=== PATIENT | male | born 1930 | race Caucasian/White ===

== ENCOUNTER 2018-06-04 08:44 | Inpatient (IN) | payer OTHER, BC ==
--- NOTE | 2018-06-04 09:01 | PDOC ---
History of Present Illness - General Chief Complaint: Injury Stated Complaint: FALL Time Seen by Provider: 06/04/18 09:00 - History of Present Illness Initial Comments: 87yo M with PMH of HTN, HLD, CAD, ?Parkinsons Disease presenting with syncopal episode and fall. The episode occurred as the patient was walking into the bathroom. Patient describes feeling weak and lightheaded prior to this episode. He lost consciousness, hit his head against an object during this unwitnessed fall. It is unknown how long he was down. No nausea or vomiting. Patient reports that he has had syncopal episodes, about ten this year, most recently in the past couple days, resulting in a right hand abrasion. Unknown what is the cause of his syncopal episodes. He has felt weak for the past several weeks. 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 Patient endorses sixty pound weight loss over the past couple years. He reports he has only eaten one meal per day because that is what comes from [employer]. Patient lives with his 91 year old sister with dementia at home. He receives some help from a neighbor. No fevers, chills, chest pain, or shortness of breath. Past History - Past Medical History Allergies/Adverse Reactions: Allergies Allergy/AdvReac Type Severity Reaction Status Date / Time No Known Allergies Allergy Verified 06/04/18 08:57 Home Medications: Ambulatory Orders Aspirin [ASA] 81 mg PO DAILY 11/23/11 Finasteride 5 mg PO DAILY 11/23/11 Metoprolol Succinate [Toprol XL] 12.5 mg PO BID 11/23/11 Cardiac Disorders: Yes (BLOCKED ARTERY) COPD: No HTN: Yes Hypercholesterolemia: Yes - Surgical History Abdominal Surgery: Yes (HERNIA REPAIR) - Suicide/Smoking/Psychosocial Hx Smoking Status: No Smoking History: Never smoked Number of Cigarettes Smoked Daily: 0 Review of Systems - Review of Systems Comments:: Constitutional: no fever, no chills HEENT: no throat pain, no dysphagia Cardiovascular: no chest pain, no palpitations Respiratory: no cough, no shortness of breath Gastrointestinal: no abdominal pain, no nausea, no vomiting Genitourinary: no dysuria, no frequency Musculoskeletal: no myalgia, no arthralgia Skin: no rash, no itching Neurologic: +difficulty ambulating, +weakness *Physical Exam - Vital Signs Last Vital Signs Temp Pulse Resp BP Pulse Ox 98.4 F 78 18 121/61 99 06/04/18 08:55 06/04/18 08:55 06/04/18 08:55 06/04/18 08:55 06/04/18 08:55 - Physical Exam Comments: General: Awake, alert, and fully oriented, in no acute distress Head: No signs of trauma Eyes: EOMI, sclera anicteric ENT: Dry mucus membranes Neck: Normal ROM, supple Lungs: Lungs clear, Normal breath sounds Cardio: Regular rhythm, S1 and S2 present Abdomen: Soft, nontender. No guarding, no rebound, no masses Extremities: Normal range of motion, Distal pulses present SKIN: Dorsum of R. hand with superficial laceration ~4cm x 4cm surrounded by scabbing and dried blood, hemostatic Neurologic: Cranial nerves II through XII intact. Resting tremor and rigidity present. Normal speech, sensation, [id number]-mv-[id number] coordination. 1+ strength in all four extremities Moderate Sedation - Procedure Monitoring Vital Signs: Procedure Monitoring Vital Signs Temperature 98.4 F 06/04/18 08:55 Pulse Rate 78 06/04/18 08:55 Respiratory Rate 18 06/04/18 08:55 Blood Pressure 121/61 06/04/18 08:55 O2 Sat by Pulse Oximetry (%) 99 06/04/18 08:55 ED Treatment Course - LABORATORY CBC & Chemistry Diagram: 06/06/18 06:53 06/05/18 06:10 Medical Decision Making - Medical Decision Making 87yo M with PMH of HTN, HLD, CAD, ?Parkinsons Disease presenting with syncopal episode and fall. -DDX includes but not limited to mechanical fall, vasovagal syncope, cardiogenic syncope, metabolic syncope, neurogenic syncope, postural syncope, intoxication, seizure -EKG, rate 67, QTc 414, abnormal EKG likely due to patient's tremors -Repeat EKG, rate 70, QTc 425, Sinus rhythm with PACs -Labs: no leukocytosis or anemia, UA negative for infection -CT/CXR: negative for acute pathology -Positive orthostatics: laying 143/70, standing 103/68 06/04/18 13:15 Dr. Gonzalez discussed case with Dr. Lewis who feels that his patient's falls are likely due to autonomic dysfunction from his Parkinson's Disease. He feels that the patient is okay to be discharged with outpatient follow-up with cardiology so that an US/ECHO can be performed. I explained this to the patient' s nephew (Wes, ) who is able to set up this appointment and is able to come and get the patient in about an hour. Plan to discharge 06/04/18 14:50 Upon ambulating to the bathroom with the help of medical reception specialist, patient almost fell and was caught by the medical reception specialist. Decision made to admit patient as it is determined that he is not safe to be discharged. Discussed this with his nephew who is able to care for his aunt with Alzheimers (who is normally taken care of by the patient) while the patient is admitted. Dr. Lewis accepted patient for admission. *DC/Admit/Observation/Transfer Diagnosis at time of Disposition: Syncopal episodes Qualifiers: Encounter type: initial encounter - Discharge Dispostion Disposition: HOME Condition at time of disposition: Stable - Referrals - Patient Instructions - Post Discharge Activity
[2018-06-04] MEDS ORDERED: TETANUS AND DIPHTHERIA TOXOID 0.5 ML DISP.SYRIN IM ONE (10:00)
[2018-06-04] MEDS ORDERED: DIPHTH,PERTUSS(ACELL),TET 0.5 ML DISP.SYRIN IM ONE (10:32)
[2018-06-04 10:45] LABS: BASO % 0.3 % (0-2.0); EOS % 0.9 % (0-4.5); HEMOGLOBIN 13.1 GM/dL (11.7-16.9); LYMPH % 9.5 % (8-40); MCH 32.6 pg (25.7-33.7); MCHC 35.3 g/dl (32.0-35.9); MEAN CELL VOLUME 92.3 fl (80-96); MEAN PLT VOLUME 8.8 fl (7.5-11.1); MONO % 5.4 % (3.8-10.2); NEUT % 83.9 % (42.8-82.8); PLATELET COUNT 219 K/MM3 (134-434); RBC 4.01 M/mm3 (4.00-5.60); RDW 13.7 % (11.9-15.9); WHITE BLOOD COUNT 9.1 K/mm3 (4.0-10.0)
[2018-06-04 11:21] LABS: URINE APPEARANCE CLEAR; URINE BILIRUBIN NEGATIVE (<2.0 mg/dL); URINE COLOR YELLOW; URINE GLUCOSE (UA) NEGATIVE (NEGATIVE); URINE KETONE NEGATIVE (NEGATIVE); URINE LEUK ESTERASE NEGATIVE (NEGATIVE); URINE NITRITE NEGATIVE (NEGATIVE); URINE PROTEIN NEGATIVE (NEGATIVE)
[2018-06-04 11:26] LABS: URINE BACTERIA FEW /hpf (NONE SEEN); URINE HYALINE CAST 3 /lpf; URINE MUCUS RARE
[2018-06-04 11:39] LABS: ALBUMIN 3.3 g/dl (3.4-5.0); ALK PHOS 90 U/L (45-117); ANION GAP 8 MMOL/L (8-16); BILIRUBIN,TOTAL 0.9 mg/dL (0.2-1); BLOOD UREA NITROGEN 27 mg/dL (7-18); CALCIUM 8.7 mg/dL (8.5-10.1); CHLORIDE 106 mmol/L (98-107); CO2 26 mmol/L (21-32); CREATININE 1.2 mg/dL (0.55-1.3); GLUCOSE,RANDOM 104 mg/dL (74-106); POTASSIUM 4.6 mmol/L (3.5-5.1); SGOT/AST 21 U/L (15-37); SGPT/ALT 13 U/L (13-61); SODIUM 140 mmol/L (136-145); TOT PROT 6.8 g/dl (6.4-8.2)
--- NOTE | 2018-06-04 13:26 | PDOC ---
Attending Attestation - Medical Decision Making Documentation prepared by Maxine Feliciano, acting as medical practice manager for Bruce Gonzalez MD 06/04/18 13:15 Dr. Lewis paged at this time for admission. <Maxine Feliciano - Last Filed: 06/04/18 13:36> - Resident Resident Name: Linda Preston - ED Attending Attestation I have performed the following: I have examined & evaluated the patient, The case was reviewed & discussed with the resident, I agree w/resident's findings & plan - HPI HPI: 06/04/18 13:21 87-year-old male with recurring syncopal episodes presents with syncope while walking, has prodrome of lightheadedness followed by loss of consciousness. No injury on this occasion, has struck his head in the past. Recently injured his hand a few days ago, denies any other complaints. Last echo was reportedly several years ago, presents for evaluation. - Physicial Exam PE: 06/04/18 13:22 Vital signs normal Generally well-appearing, trauma exam localized to right hand where he has scattered healing superficial wounds without evidence of infection at this time. No focal bony deformity or tenderness, full range of motion and neurovascularly intact Heart is overall regular with 3/6 systolic ejection murmur, occasional premature beats Lungs are clear Abdomen benign Full range of motion of all extremities, no edema - Medical Decision Making 06/04/18 13:23 87-year-old male with recurring syncopal episodes, another episode today. Concern for cardiac etiology given the murmur and potential arrhythmia. Labs, EKG Chest x-ray CT head Admission for telemetry Labs are within normal limits including troponin Initial EKG with significant artifact secondary to underlying resting tremor, repeat EKG shows sinus rhythm with a single PVC noted but no acute ischemia Chest x-ray, CT head, CT C-spine without acute pathology Proceed with telemetry admission 06/04/18 13:[address] Lewis, who knows the patient very well. syncope historically 2/2 autonimic dysfunction from parkinson's, known non-compliant and f/u at [facility]. PVC on EKG old per priors from office, last Echo from 2013 shows calcified aortic valve but no stenosis. discussed risk/benefit of admitting including issue of dependent sister at home. recommends expedited outpt echo coordinated with nephew if possible and can f/u. if outpt echo not an option, will need to stay. 06/04/18 15:46 unable to ambulate on trialing. will admit. seen with Dr. Lewis, accepts for inpt med/surg, will likely need rehab placment. <Bruce Gonzalez - Last Filed: 06/04/18 15:46> Heart Score/ECG Review #1 ECG reviewed & interpreted by me at: 10:13 06/04/18 13:24 artifact, rate 67 #2 ECG reviewed & interpreted by me at: 13:00 General ECG Interpretation: Sinus Rhythm (PVC noted), Normal Rate (70), Normal Intervals (qtc 425), No acute ischemic changes <Bruce Gonzalez - Last Filed: 06/04/18 15:46>
--- NOTE | 2018-06-04 15:51 | HP ---
Admitting History and Physical - Admission Chief Complaint: 87 y.o M was admitted from his home after episode of syncope/ near syncope. 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 He lives at home with his sister Sahra who has advanced Dementia and Alzheimer's disease. In the ER unable to stand, walk and incontinent of Urine. Admitted for further management History of Present Illness: ASHD, previously FCAVD No hx of [place] Parkinson"s Dementia. 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 No: AFIB, CHF, Deep Vein Thrombosis, ND , Mitral Insufficiency Pulmonary: No: Cancer, COPD, O2 Dependent, Pulmonary Embolus Gastrointestinal: Yes: Diverticulosis Hepatobiliary: No: Cirrhosis, Cholelithiasis, Cholecystitis, Choledocholithiasis , Hepatitis A, Hepatitis B, Hepatitis C, Other Renal/: No: Renal Failure, Renal Inusuff, BPH, Cancer, Hematuria, Hemodialysis , Neurogenic Bladder, Renal Calculi, UTI, Other Heme/Onc: No: Bleeding Disorder, Cancer, Sickle Cell Trait Infectious Disease: No: AIDS, C-Diff, Herpes Zoster, HIV, MRSA, STD's, Tuberculosis, VREF, Other Psych: Yes: Anxiety, Depression, Panic. No: Addictions Musculoskeletal: Yes: Chronic low back pain, Osteoarthritis. No: Hemiparesis, Hemiplegia, Paraplegia Rheumatology: No: Fibromyalgia, Lupus, Rheumatoid Arthritis, Sarcoidosis, Vasculitis - Smoking History Smoking history: Never smoked Aproximately how many cigarettes per day: 0 - Alcohol/Substance Use Hx Alcohol Use: No - Social History History of Recent Travel: No Home Medications - Allergies Allergies/Adverse Reactions: Allergies Allergy/AdvReac Type Severity Reaction Status Date / Time No Known Allergies Allergy Verified 06/04/18 08:57 - Home Medications Home Medications: Ambulatory Orders Aspirin [ASA] 81 mg PO DAILY 11/23/11 Finasteride 5 mg PO DAILY 11/23/11 Metoprolol Succinate [Toprol XL] 12.5 mg PO BID 11/23/11 Family Disease History - Family Disease History Family History: Unremarkable Review of Systems - Review of Systems Constitutional: reports: Lethargy, Loss of Appetite, Weakness Eyes: reports: Blurred Vision HENT: denies: Difficult Swallowing Neck: denies: Decreased ROM, Lumps, Pain on Movement Cardiovascular: denies: Chest Pain, Edema, Palpitations, Shortness of Breath Respiratory: denies: Cough, Exercise Intolerance, Hemoptysis Gastrointestinal: reports: Constipation. denies: Abdominal Pain, Bloating Genitourinary: reports: Incontinence. denies: Burning, Discharge Musculoskeletal: reports: Muscle Weakness. denies: Extremity Pain, Joint Pain Hematology/Lymphatic: denies: Excessive Bleeding, Swollen Glands Psychiatric: reports: Altered Sleep Pattern, Anxiety, Depression, Panic. denies : Hallucinations, Suicidal Physical Examination Vital Signs: Vital Signs Temperature 98.4 F 06/04/18 15:46 Pulse Rate 67 06/04/18 15:46 Respiratory Rate 16 06/04/18 15:46 Blood Pressure 120/65 06/04/18 15:46 O2 Sat by Pulse Oximetry (%) 99 06/04/18 15:46 Constitutional: Yes: Anxious, Mild Distress, Pallor Eyes: Yes: Conjunctiva Clear, EOM Intact HENT: Yes: Atraumatic, Normocephalic Neck: Yes: Supple, Trachea Midline. No: Decreased ROM, Lymphadenopathy Cardiovascular: Yes: Pulse Irregular (VPC's), Murmur (4/5 LYSSA on aorta), S1, S2 Respiratory: Yes: Regular, CTA Bilaterally Gastrointestinal: Yes: Normal Bowel Sounds, Soft, Abdomen, Obese ...Rectal Exam: Yes: Deferred Renal/: No: Anuria, Bladder Distention, CVA Tenderness - Left Breast(s): Yes: WNL Extremities: No: Calf Tenderness, Cold, Cyanosis Edema: No Peripheral Pulses WNL: No Integumentary: Yes: WNL Neurological: Yes: Alert, Oriented, Confusion, Tremors, Unsteady Gait, Weakness. No: Aphasia, Seizure Psychiatric: Yes: Alert, Oriented. No: Agitated, Suicidal Ideation Labs: CBC, BMP 06/04/18 10:30 06/04/18 10:30 Laboratory Results - last 24 hr 06/04/18 06/04/18 06/04/18 10:30 10:30 11:01 WBC 9.1 RBC 4.01 Hgb 13.1 Hct 37.0 MCV 92.3 MCH 32.6 MCHC 35.3 RDW 13.7 Plt Count 219 MPV 8.8 Absolute Neuts (auto) 7.6 Neutrophils % 83.9 H Lymphocytes % 9.5 D Monocytes % 5.4 Eosinophils % 0.9 Basophils % 0.3 Nucleated RBC % 0 Sodium 140 Potassium 4.6 Chloride 106 Carbon Dioxide 26 Anion Gap 8 BUN 27 H Creatinine 1.2 Creat Clearance w eGFR 57.54 Random Glucose 104 Calcium 8.7 Total Bilirubin 0.9 AST 21 ALT 13 Alkaline Phosphatase 90 Troponin I < 0.02 Total Protein 6.8 Albumin 3.3 L TSH 1.28 Urine Color Yellow Urine Appearance Clear Urine pH 5.0 Ur Specific [place] 1.020 Urine Protein Negative Urine Glucose (UA) Negative Urine Ketones Negative Urine Blood 1+ H Urine Nitrite Negative Urine Bilirubin Negative Urine Urobilinogen 2.0 Ur Leukocyte Esterase Negative Urine WBC (Auto) 4 Urine RBC (Auto) 1 Urine Bacteria Few Hyaline Casts 3 Urine Mucus Rare Imaging - Results X-ray: Report Reviewed Cat Scan: Report Reviewed EKG: Report Reviewed, Image Reviewed Problem List - Problems (1) Syncopal episodes Assessment/Plan: Probably related to Parkinson, qmyp-jwwaq-vmyhprvdl dysfunction. Will observe VS, cardiology CT HEAD-volume loss, ventricular dilatations Code(s): R55 - SYNCOPE AND COLLAPSE Qualifiers: Encounter type: initial encounter (2) Parkinson disease, symptomatic Assessment/Plan: Re-start Sinemet 25/100 TID Neuro consult Code(s): G20 - PARKINSON'S DISEASE (3) Aortic stenosis Assessment/Plan: R/o severe contributing to syncopal episodes ECHO Cardiology Code(s): I35.0 - NONRHEUMATIC AORTIC (VALVE) STENOSIS Qualifiers: Cardiac valve disease etiology: nonrheumatic Qualified Code(s): I35.0 - Nonrheumatic aortic (valve) stenosis (4) Functional gait disorder with tremor Assessment/Plan: PT eval The patient might require SNF rehab Code(s): R26.9 - UNSPECIFIED ABNORMALITIES OF GAIT AND MOBILITY; R25.1 - TREMOR , UNSPECIFIED
--- NOTE | 2018-06-04 16:13 | EKG ---
Test Reason : Blood Pressure : / mmHG Vent. Rate : 070 BPM Atrial Rate : 070 BPM P-R Int : 176 ms QRS Dur : 086 ms QT Int : 394 ms P-R-T Axes : 062 033 028 degrees QTc Int : 425 ms POOR DATA QUALITY, INTERPRETATION MAY BE ADVERSELY AFFECTED SINUS RHYTHM WITH PREMATURE ATRIAL COMPLEXES OTHERWISE NORMAL ECG WHEN COMPARED WITH ECG OF 04-JUN-2018 10:13, SINUS RHYTHM HAS REPLACED ATRIAL FIBRILLATION Confirmed by ORALIA RICHARDSON, ARACELI ([id number]) on 06/04/2018 4:13:33 PM Referred By: Confirmed By:ARACELI BARTON MD
--- NOTE | 2018-06-04 16:15 | EKG ---
Test Reason : Blood Pressure : / mmHG Vent. Rate : 067 BPM Atrial Rate : 375 BPM P-R Int : 000 ms QRS Dur : 086 ms QT Int : 392 ms P-R-T Axes : 000 062 066 degrees QTc Int : 414 ms POOR DATA QUALITY, INTERPRETATION MAY BE ADVERSELY AFFECTED ATRIAL FIBRILLATION ABNORMAL ECG WHEN COMPARED WITH ECG OF 23-NOV-2011 12:30, ATRIAL FIBRILLATION HAS REPLACED SINUS RHYTHM Confirmed by ORALIA RICHARDSON, ARACELI ([id number]) on 06/04/2018 4:14:50 PM Referred By: Confirmed By:ARACELI BARTON MD
[2018-06-04] MEDS: metoPROLOL SUCCINATE 25 MG TAB.SR.24H (FP) PO SCH (22:07)
[2018-06-04] MEDS: CARBIDOPA/LEVODOPA 25/100 TABLET (FP) PO SCH (22:07)
--- NOTE | 2018-06-05 02:33 | HOSP ---
Physical Examination Vital Signs: Vital Signs Temperature 98.3 F 06/04/18 20:46 Pulse Rate 68 06/04/18 20:46 Respiratory Rate 20 06/05/18 00:07 Blood Pressure 131/69 06/04/18 20:46 O2 Sat by Pulse Oximetry (%) 98 06/05/18 00:07 Labs: CBC, BMP 06/04/18 10:30 06/04/18 10:30 Hospitalist Encounter Assessment: I was called by nursing staff for evaluation of abnormal EKG. 2 EKGs from earlier this admission reviewed and one c/w atrial fibrillation and second with possible atrial flutter?. Patient endorses that he "blacked out" earlier rather than mechanical fall. On exam, patient is awake, alert, in no distress. Heart sounds distant. Cardiology consult is placed. Transthoracic echo ordered. I discussed anticoagulation with him including risks and benefits. He chooses to decline anticoagulation at this time due to his frequent falls and high risk for bleed.
[2018-06-05] MEDS: CARBIDOPA/LEVODOPA 25/100 TABLET (FP) PO SCH ×3 (05:29→21:28)
[2018-06-05 07:25] LABS: BASO % 0.3 % (0-2.0); EOS % 1.4 % (0-4.5); HEMATOCRIT 37.5 % (35.4-49); HEMOGLOBIN 12.1 GM/dL (11.7-16.9); LYMPH % 18.3 % (8-40); MCH 30.2 pg (25.7-33.7); MCHC 32.4 g/dl (32.0-35.9); MEAN CELL VOLUME 93.2 fl (80-96); MEAN PLT VOLUME 8.8 fl (7.5-11.1); MONO % 5.5 % (3.8-10.2); NEUT % 74.5 % (42.8-82.8); PLATELET COUNT 221 K/MM3 (134-434); RBC 4.02 M/mm3 (4.00-5.60); WHITE BLOOD COUNT 7.7 K/mm3 (4.0-10.0)
--- NOTE | 2018-06-05 08:52 | PN ---
Progress Note, Physician Chief Complaint: Episodes of orthostatic hypotension noted. Ekg's -questionable episodes of A.fib. Today AM SR, APC's, single and pairs. History of Present Illness: ASHD, previously FCAVD No hx of [place] Parkinson"s Dementia. HTN Multiple falls BPH - Current Medication List Current Medications: Active Medications Aspirin (Asa -) 81 mg PO DAILY [facility] Carbidopa/Levodopa (Sinemet 25/100 -) 1 each PO TID [facility] Last Admin: 06/05/18 05:29 Dose: Not Given Finasteride (Proscar -) 5 mg PO DAILY [facility] Fludrocortisone Acetate (Florinef -) 0.1 mg PO DAILY [facility] Influenza Virus Vaccine Quadrival (Flulaval Quad [id number]) 60 mcg IM .ONCE ONE Stop: 06/05/18 10:01 Metoprolol Succinate (Toprol Xl -) 12.5 mg PO BID [facility] Last Admin: 06/04/18 22:07 Dose: 12.5 mg Pneumococcal 13-Valent Conj Vacc (Prevnar 13 Syringe -) 0.5 ml IM .ONCE ONE Stop: 06/05/18 10:01 - Objective Vital Signs: Vital Signs Temperature 98.4 F 06/05/18 06:00 Pulse Rate 70 06/05/18 06:00 Respiratory Rate 20 06/05/18 06:00 Blood Pressure 69/47 L 06/05/18 06:00 O2 Sat by Pulse Oximetry (%) 98 06/05/18 00:07 Constitutional: Yes: Anxious, Mild Distress Eyes: Yes: Conjunctiva Clear, EOM Intact HENT: Yes: Atraumatic, Normocephalic. No: Drooling Neck: Yes: Supple, Trachea Midline. No: Decreased ROM, Lymphadenopathy Cardiovascular: Yes: Pulse Irregular (APC), Murmur (on Aorta 3-4/6 crescendo- decrescendo), S1, S2. No: Bruit, JVD Respiratory: Yes: Regular, CTA Bilaterally Gastrointestinal: Yes: Normal Bowel Sounds, Soft. No: Abdomen, Obese, Ascites ...Rectal Exam: Yes: Deferred Genitourinary: No: Anuria, Bladder Distention, CVA Tenderness - Left, CVA Tenderness - Right Breast(s): Yes: WNL Musculoskeletal: No: Back Pain, Joint Stiffness Extremities: No: Amputation, Cold, Cyanosis Edema: No Peripheral Pulses WNL: Yes Integumentary: Yes: Bruising (ight hand) Wound/Incision: Yes: Clean/Dry (right hand) ...Motor Strength: WNL Psychiatric: Yes: Alert, Oriented. No: Agitated, Suicidal Ideation Labs: CBC, BMP 06/05/18 06:10 06/04/18 10:30 - ....Imaging EKG: Report Reviewed Problem List - Problems (1) Syncopal episodes Assessment/Plan: Orthostatic hypotension, autonomic disfunction. Will check cortisol ECHO Cardiology Start Fludrocortisone 0.1 QD Code(s): R55 - SYNCOPE AND COLLAPSE Qualifiers: Encounter type: initial encounter (2) Parkinson disease, symptomatic Assessment/Plan: Re-start Sinemet 25/100 TID Neuro consult Code(s): G20 - PARKINSON'S DISEASE (3) Aortic stenosis Assessment/Plan: R/o severe contributing to syncopal episodes ECHO Cardiology consult Code(s): I35.0 - NONRHEUMATIC AORTIC (VALVE) STENOSIS Qualifiers: Cardiac valve disease etiology: nonrheumatic Qualified Code(s): I35.0 - Nonrheumatic aortic (valve) stenosis (4) Functional gait disorder with tremor Assessment/Plan: PT eval The patient might require SNF rehab Muscle weakness Code(s): R26.9 - UNSPECIFIED ABNORMALITIES OF GAIT AND MOBILITY; R25.1 - TREMOR , UNSPECIFIED (5) Arrhythmia, atrial Assessment/Plan: r/o a.fib vs frequent APC and artifact from Parkinson's on the first EKG Telemetry Reluctant to proceed with A/C if necessary. He is a poor candidate for A/C due to frequent falls and poor compliance with meds. Code(s): I49.8 - OTHER SPECIFIED CARDIAC ARRHYTHMIAS (6) Malnutrition of mild degree Assessment/Plan: Start Ensure TID Code(s): E44.1 - MILD PROTEIN-CALORIE MALNUTRITION
--- NOTE | 2018-06-05 09:09 | EKG ---
Test Reason : Blood Pressure : / mmHG Vent. Rate : 073 BPM Atrial Rate : 038 BPM P-R Int : 000 ms QRS Dur : 086 ms QT Int : 394 ms P-R-T Axes : 000 043 042 degrees QTc Int : 434 ms POOR DATA QUALITY, INTERPRETATION MAY BE ADVERSELY AFFECTED NORMAL SINUS RHYTHM sinus arrhythmia ABNORMAL ECG Confirmed by RENATA WOODSON MD ([id number]) on 06/05/2018 9:09:00 AM Referred By: Confirmed By:RENATA WOODSON MD
--- NOTE | 2018-06-05 09:16 | EKG ---
Test Reason : Blood Pressure : / mmHG Vent. Rate : 075 BPM Atrial Rate : 075 BPM P-R Int : 182 ms QRS Dur : 090 ms QT Int : 380 ms P-R-T Axes : 047 062 061 degrees QTc Int : 424 ms SINUS RHYTHM WITH PREMATURE ATRIAL COMPLEXES OTHERWISE NORMAL ECG WHEN COMPARED WITH ECG OF 04-JUN-2018 23:31, SINUS RHYTHM HAS REPLACED ATRIAL FIBRILLATION Confirmed by KANDICE RICHARDSON, RENATA ([id number]) on 06/05/2018 9:16:07 AM Referred By: Confirmed By:RENATA WOODSON MD
[2018-06-05 09:44] LABS: ALBUMIN 3.1 g/dl (3.4-5.0); ALK PHOS 83 U/L (45-117); ANION GAP 6 MMOL/L (8-16); BLOOD UREA NITROGEN 23 mg/dL (7-18); CALCIUM 8.5 mg/dL (8.5-10.1); CHLORIDE 104 mmol/L (98-107); CHOLESTEROL 197 mg/dL (50-200); CO2 26 mmol/L (21-32); CREATININE 1.2 mg/dL (0.55-1.3); GLUCOSE,RANDOM 95 mg/dL (74-106); HDL CHOLESTEROL 37 mg/dL (40-60); MAGNESIUM 2.1 mg/dL (1.8-2.4); PHOSPHOROUS 3.2 mg/dL (2.5-4.9); POTASSIUM 4.1 mmol/L (3.5-5.1); SGOT/AST 12 U/L (15-37); SGPT/ALT 7 U/L (13-61); SODIUM 137 mmol/L (136-145); TOT PROT 6.4 g/dl (6.4-8.2); TRIGLYCERIDES 98 mg/dL (0-150)
[2018-06-05] MEDS ORDERED: PNEUMOC 13-VAL CONJ-DIP CRM/PF 0.5 ML DISP.SYRIN IM ONE (10:00)
[2018-06-05] MEDS ORDERED: ASPIRIN 81 MG CHEWABLE TABLETS PO SCH (10:00)
[2018-06-05] MEDS ORDERED: FLU VACCINE QUAD 60 MCG/0.5 ML (MDV 18-19) IM ONE (10:00)
[2018-06-05] MEDS ORDERED: FINASTERIDE 5 MG TABLET (FP) PO SCH (10:00)
--- NOTE | 2018-06-05 10:41 | CON.CARD ---
Consult Consult Specialty:: cardiology Reason for Consultation:: syncope - History of Present Illness Chief Complaint: Pt denies palpitations or chest pain. History of Present Illness: 87yo M with PMH of HTN, HLD, CAD, ?Parkinsons Disease presenting with syncopal episode and fall. The episode occurred as the patient was walking into the bathroom. Patient describes feeling weak and lightheaded prior to this episode. He lost consciousness, hit his head against an object during this unwitnessed fall. It is unknown how long he was down. No nausea or vomiting. Patient reports that he has had syncopal episodes, about ten this year, most recently in the past couple days, resulting in a right hand abrasion. Unknown what is the cause of his syncopal episodes. He has felt weak for the past several weeks. 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 Patient endorses sixty pound weight loss over the past couple years. He reports he has only eaten one meal per day because that is what comes from [employer] [facility]. Patient lives with his 91 year old sister with dementia at home. He receives some help from a neighbor. No fevers, chills, chest pain, or shortness of breath. 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 No: AFIB, CHF, Deep Vein Thrombosis, [place] , Mitral Insufficiency Pulmonary: No: Cancer, COPD, O2 Dependent, Pulmonary Embolus Gastrointestinal: Yes: Diverticulosis Hepatobiliary: No: Cirrhosis, Cholelithiasis, Cholecystitis, Choledocholithiasis , Hepatitis A, Hepatitis B, Hepatitis C, Other Renal/: No: Renal Failure, Renal Inusuff, BPH, Cancer, Hematuria, Hemodialysis , Neurogenic Bladder, Renal Calculi, UTI, Other Infectious Disease: No: AIDS, C-Diff, Herpes Zoster, HIV, MRSA, STD's, Tuberculosis, VREF, Other Psych: Yes: Anxiety, Depression, Panic. No: Addictions Musculoskeletal: Yes: Chronic low back pain, Osteoarthritis. No: Hemiparesis, Hemiplegia, Paraplegia Rheumatology: No: Fibromyalgia, Lupus, Rheumatoid Arthritis, Sarcoidosis, Vasculitis - Alcohol/Substance Use Hx Alcohol Use: No - Smoking History Smoking history: Never smoked Aproximately how many cigarettes per day: 0 - Social History History of Recent Travel: No Home Medications - Allergies Allergies/Adverse Reactions: Allergies Allergy/AdvReac Type Severity Reaction Status Date / Time No Known Allergies Allergy Verified 06/04/18 08:57 - Home Medications Home Medications: Ambulatory Orders Aspirin [ASA] 81 mg PO DAILY 11/23/11 Finasteride 5 mg PO DAILY 11/23/11 Metoprolol Succinate [Toprol XL] 12.5 mg PO BID 11/23/11 Family Disease History - Family Disease History Family History: Denies Review of Systems - Review of Systems Constitutional: reports: Unintentional Wgt. Loss, Weakness Eyes: reports: No Symptoms HENT: reports: No Symptoms Neck: reports: No Symptoms Cardiovascular: reports: No Symptoms Respiratory: reports: No Symptoms Gastrointestinal: denies: Rectal Bleeding Genitourinary: reports: No Symptoms Breasts: reports: No Symptoms Reported Musculoskeletal: reports: Muscle Weakness Integumentary: reports: No Symptoms Neurological: reports: Weakness Endocrine: reports: Unexplained Weight Loss Psychiatric: reports: Anxiety - Risk Factors Known Risk Factors: Yes: Age, Gender, Hypertension Vital Signs: Vital Signs Temperature 98.4 F 06/05/18 06:00 Pulse Rate 70 06/05/18 06:00 Respiratory Rate 20 06/05/18 06:00 Blood Pressure 69/47 L 06/05/18 06:00 O2 Sat by Pulse Oximetry (%) 98 06/05/18 00:07 Constitutional: Yes: Anxious Eyes: Yes: WNL HENT: Yes: WNL Neck: Yes: WNL Respiratory: Yes: Diminished - Other Data Labs, Other Data: CBC, BMP 06/05/18 06:10 06/05/18 06:10 Troponin, BNP 06/04/18 06/04/18 10:30 20:50 Troponin I < 0.02 0.02 Troponin, BNP 06/04/18 06/04/18 10:30 20:50 Troponin I < 0.02 0.02 Ejection Fraction %: LVEF > or = 40 % Imaging - Results Chest X-ray: Image Reviewed (no acute pathology) EKG: Image Reviewed Problem List - Problems (1) Parkinson disease, symptomatic Code(s): G20 - PARKINSON'S DISEASE (2) Syncopal episodes Assessment/Plan: Maintain hydration. Orthostatic vital signs. ECHO for LVEF, valve status (3/6 LYSSA, RSB--> left axilla); hx aortic stenosis. Telemetry monitoring. Neruology w/u in progress. Code(s): R55 - SYNCOPE AND COLLAPSE Qualifiers: Encounter type: initial encounter (3) Aortic stenosis Assessment/Plan: Harsh systolic murmur, RSB-->axilla by history; f/u ECHO for LVEF, valve status. Code(s): I35.0 - NONRHEUMATIC AORTIC (VALVE) STENOSIS Qualifiers: Cardiac valve disease etiology: nonrheumatic Qualified Code(s): I35.0 - Nonrheumatic aortic (valve) stenosis (4) EKG abnormalities Assessment/Plan: EKK 06/05/18: NSR with APCs. EKG 06/04/18, read as atrial fib/flutter, likely artifactual due to Parkinson's tremor; for telemetry monitoring. Code(s): R94.31 - ABNORMAL ELECTROCARDIOGRAM [ECG] [EKG]
[2018-06-05] MEDS: metoPROLOL SUCCINATE 25 MG TAB.SR.24H (FP) PO SCH ×2 (10:42→21:29)
[2018-06-05] MEDS ORDERED: PT OWN MED DRAWER 7, Y5N ONE ×2 (13:11→15:14)
[2018-06-05] MEDS: FLUDROCORTISONE ACETATE 0.1 MG TABLET (FP) PO SCH (16:34)
[2018-06-05 17:04] VITALS: BMI 24.9
--- NOTE | 2018-06-05 18:18 | CON.NEURO ---
Consult - History of Present Illness History of Present Illness: 87 y.o M was admitted from his home after episode of syncope/ near syncope. 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 He states he takes RX sometimes " when he can reach them " He lives at home with his sister Sahra who has advanced Dementia and Alzheimer's disease. In the ER unable to stand, walk and incontinent of Urine. Admitted for further management. Poor HX . SCANS : CT scan of the brain without intravenous contrast Since 11/23/2011, there remains moderate volume loss and ventricular dilatation. No mass lesion, gross acute infarct or intracranial hemorrhage are identified. There is no shift of the midline structures. Visualized paranasal sinuses and mastoid air cells are well aerated. The calvarium is intact. Calcification of the cavernous carotid arteries are present. IMPRESSION: No significant interval change or acute intracranial pathology is identified. Correlate clinically to determine further evaluation and follow-up. CT scan of the cervical spine without intravenous contrast Coronal and sagittal reconstruction images were obtained. There is straightening of the cervical spine. No gross fracture, subluxation or prevertebral soft tissue swelling is seen. No jumped facets are identified. Moderate to marked degenerative disc disease at C4-C5, C5-C6 and C6-C7 level with mild posterior spur formation mainly at C5-C6 level and left uncovertebral hypertrophy moderately narrowing the left foramen and likely impinging left C6 nerve root. Mild degenerative changes in both TM joints. Visualized portion of the airway appears unremarkable. No gross enlarged lymph nodes are identified. Small calcified plaques at the common carotid bifurcation, bilaterally. Hypodense nodule with peripheral calcifications in the left thyroid lobe measuring 1.5 cm. Note is made of linear-like scarring in the left lung apex as well as biapical pleural thickening IMPRESSION: See discussion above. Straightening of the cervical spine without gross evidence of a compression fracture or subluxation. No prevertebral soft tissue swelling is seen. Multilevel degenerative disc disease , as described above. - Past Medical History VP ANALYTICS: Yes: Dementia, Parkinson's Cardio/Vascular: Yes: CAD, HTN, Murmur. No: AFIB, CHF, Deep Vein Thrombosis, [place] , Mitral Insufficiency Pulmonary: No: Cancer, COPD, O2 Dependent, Pulmonary Embolus Gastrointestinal: Yes: Diverticulosis Hepatobiliary: No: Cirrhosis, Cholelithiasis, Cholecystitis, Choledocholithiasis , Hepatitis A, Hepatitis B, Hepatitis C, Other Renal/: No: Renal Failure, Renal Inusuff, BPH, Cancer, Hematuria, Hemodialysis , Neurogenic Bladder, Renal Calculi, UTI, Other Infectious Disease: No: AIDS, C-Diff, Herpes Zoster, HIV, MRSA, STD's, Tuberculosis, VREF, Other Psych: Yes: Anxiety, Depression, Panic. No: Addictions Musculoskeletal: Yes: Chronic low back pain, Osteoarthritis. No: Hemiparesis, Hemiplegia, Paraplegia Rheumatology: No: Fibromyalgia, Lupus, Rheumatoid Arthritis, Sarcoidosis, Vasculitis - Alcohol/Substance Use Hx Alcohol Use: No - Smoking History Smoking history: Never smoked Aproximately how many cigarettes per day: 0 - Social History History of Recent Travel: No Home Medications - Allergies Allergies/Adverse Reactions: Allergies Allergy/AdvReac Type Severity Reaction Status Date / Time No Known Allergies Allergy Verified 06/04/18 08:57 - Home Medications Home Medications: Ambulatory Orders Aspirin [ASA] 81 mg PO DAILY 11/23/11 Finasteride 5 mg PO DAILY 11/23/11 Metoprolol Succinate [Toprol XL] 12.5 mg PO BID 11/23/11 Physical Exam-Neuro Vital Signs: Vital Signs Temperature 98.4 F 06/05/18 06:00 Pulse Rate 76 06/05/18 15:00 Respiratory Rate 18 06/05/18 10:00 Blood Pressure 114/76 06/05/18 15:00 O2 Sat by Pulse Oximetry (%) 98 06/05/18 09:00 Labs: CBC, BMP 06/05/18 06:10 06/05/18 06:10 - Neuro Exam Level Of Consciousness: Yes: Alert (awake, conversive, tangential, moving exe x 4, mild tremor and cogwheeling , ) Imaging - Results Cat Scan: Report Reviewed, Image Reviewed Problem List - Problems (1) Parkinson disease, symptomatic Code(s): G20 - PARKINSON'S DISEASE (2) Syncopal episodes Code(s): R55 - SYNCOPE AND COLLAPSE Qualifiers: Encounter type: initial encounter Assessment/Plan 87 y.o M was admitted from his home after episode of syncope/ near syncope. 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 He states he takes RX sometimes " when he can reach them " He lives at home with his sister Sahra who has advanced Dementia and Alzheimer's disease. In the ER unable to stand, walk and incontinent of Urine. Admitted for further management. Poor HX . Syncope can be related to PD /dysautonomia vs hypotension vs cardiac - PD appears to mild and although sinemet can help may further contribute to hypotension; compliance also an issue. BP now appaers low/ NL so can continue. perhaps add on compression stocking may help; agree with low dose florinef ; -cardiac VARGHESE - will likely need termite exterminator placement given living situation , [facility] DR OLIVIA
--- NOTE | 2018-06-05 18:20 | EKG ---
Test Reason : Blood Pressure : / mmHG Vent. Rate : 064 BPM Atrial Rate : 064 BPM P-R Int : 182 ms QRS Dur : 088 ms QT Int : 390 ms P-R-T Axes : 084 058 057 degrees QTc Int : 402 ms SINUS RHYTHM WITH OCCASIONAL PREMATURE VENTRICULAR COMPLEXES INCREASED R/S RATIO IN V1, CONSIDER EARLY TRANSITION OR POSTERIOR INFARCT ABNORMAL ECG WHEN COMPARED WITH ECG OF 05-JUN-2018 08:49, PREMATURE VENTRICULAR COMPLEXES ARE NOW PRESENT PREMATURE ATRIAL COMPLEXES ARE NO LONGER PRESENT Confirmed by MEGHA MENJIVAR MD ([id number]) on 06/05/2018 6:19:48 PM Referred By: XAVI HARPER Confirmed By:MEGHA MENJIVAR MD
[2018-06-06] MEDS: CARBIDOPA/LEVODOPA 25/100 TABLET (FP) PO SCH ×3 (07:02→21:27)
[2018-06-06 07:38] LABS: BASO % 0.2 % (0-2.0); EOS % 2.2 % (0-4.5); HEMATOCRIT 39.2 % (35.4-49); HEMOGLOBIN 12.6 GM/dL (11.7-16.9); LYMPH % 17.2 % (8-40); MCH 29.9 pg (25.7-33.7); MCHC 32.1 g/dl (32.0-35.9); MEAN PLT VOLUME 8.8 fl (7.5-11.1); MONO % 5.1 % (3.8-10.2); NEUT % 75.3 % (42.8-82.8); PLATELET COUNT 224 K/MM3 (134-434); RBC 4.22 M/mm3 (4.00-5.60); RDW 13.8 % (11.9-15.9)
--- NOTE | 2018-06-06 10:17 | PN ---
Progress Note (short form) - Note Progress Note: Subjective: --no events overnight --ECG NSR with APCs from 06/05 Telemetry with no events Objective: Vital Signs 06/06/18 07:00 Pulse Rate [ 81 Right side Sitting] Pulse Rate [ 84 Right side Standing] Pulse Rate [ 62 Right side Supine] Blood Pressure 109/64 [Right side Sitting] Blood Pressure 97/42 L [Right side Standing] Blood Pressure 136/73 [Right side Supine] Gen: well appearing male in NAD HEENT: NC/AT. OP Clear, MMM Cardiac: S1/soft S2, 3/6 systolic murmur loudest at LSB Pulm: clear breath sounds bilaterally Ext: WWP. Active Medications Aspirin (Asa -) 81 mg PO DAILY [facility] Carbidopa/Levodopa (Sinemet 25/100 -) 1 each PO TID [facility] Last Admin: 06/06/18 07:02 Dose: 1 each Finasteride (Proscar -) 5 mg PO DAILY [facility] Fludrocortisone Acetate (Florinef -) 0.1 mg PO DAILY [facility] Last Admin: 06/05/18 16:34 Dose: 0.1 mg Metoprolol Succinate (Toprol Xl -) 12.5 mg PO BID [facility] Last Admin: 06/05/18 21:29 Dose: 12.5 mg 87 year old male admitted with syncopal episode. #Syncope Etiology: unclear Workup: --echocardiogram with moderate to severe with mean gradient of 39mmHg and SHAW 1.2cm2 --consider provocative testing with exercise to assess gradients/SHAW if within goals of care on Friday (patient concerned about his sister with dementia at home and unsure if he would like to proceed with more testing) --ECG 06/05 with sinus with PACs --troponin negative --telemetry with sinus rhythm with APCs --nuclear stress test to evaluate for ischemia on Friday (please keep NPO after midnight Friday evening) Treatment: --continue to monitor --Appreciate neuro recfreddy Moser MD
[2018-06-06] MEDS: ASPIRIN 81 MG CHEWABLE TABLETS PO SCH (10:22)
[2018-06-06] MEDS: FLUDROCORTISONE ACETATE 0.1 MG TABLET (FP) PO SCH (10:22)
[2018-06-06] MEDS: FINASTERIDE 5 MG TABLET (FP) PO SCH (10:22)
[2018-06-06] MEDS: metoPROLOL SUCCINATE 25 MG TAB.SR.24H (FP) PO SCH ×2 (10:22→21:27)
--- NOTE | 2018-06-06 12:35 | PN ---
Progress Note, Physician - Current Medication List Current Medications: Active Medications Aspirin (Asa -) 81 mg PO DAILY [facility] Last Admin: 06/06/18 10:22 Dose: 81 mg Carbidopa/Levodopa (Sinemet 25/100 -) 1 each PO TID [facility] Last Admin: 06/06/18 07:02 Dose: 1 each Finasteride (Proscar -) 5 mg PO DAILY [facility] Last Admin: 06/06/18 10:22 Dose: 5 mg Fludrocortisone Acetate (Florinef -) 0.1 mg PO DAILY [facility] Last Admin: 06/06/18 10:22 Dose: 0.1 mg Metoprolol Succinate (Toprol Xl -) 12.5 mg PO BID [facility] Last Admin: 06/06/18 10:22 Dose: 12.5 mg - Objective Vital Signs: Vital Signs Temperature 98 F 06/06/18 10:19 Pulse Rate 72 06/06/18 10:19 Respiratory Rate 20 06/06/18 10:19 Blood Pressure 102/65 06/06/18 10:19 O2 Sat by Pulse Oximetry (%) 95 06/05/18 21:00 Constitutional: Yes: Well Nourished, No Distress, Calm Eyes: Yes: WNL, Conjunctiva Clear, EOM Intact HENT: Yes: Atraumatic, Normocephalic Neck: Yes: WNL, Supple, Trachea Midline Cardiovascular: Yes: WNL, Regular Rate and Rhythm, Murmur, S1, S2 Respiratory: Yes: WNL, Regular, CTA Bilaterally Gastrointestinal: Yes: WNL, Normal Bowel Sounds, Soft Edema: LLE: 4+, RLE: 4+ Peripheral Pulses WNL: Yes Integumentary: Yes: WNL Neurological: Yes: WNL, Alert, Oriented ...Motor Strength: WNL Psychiatric: Yes: WNL, Alert, Oriented Labs: CBC, BMP 06/06/18 06:53 06/05/18 06:10 Problem List - Problems (1) Aortic stenosis Code(s): I35.0 - NONRHEUMATIC AORTIC (VALVE) STENOSIS Qualifiers: Cardiac valve disease etiology: nonrheumatic Qualified Code(s): I35.0 - Nonrheumatic aortic (valve) stenosis (2) Arrhythmia, atrial Code(s): I49.8 - OTHER SPECIFIED CARDIAC ARRHYTHMIAS (3) EKG abnormalities Code(s): R94.31 - ABNORMAL ELECTROCARDIOGRAM [ECG] [EKG] (4) Parkinson disease, symptomatic Code(s): G20 - PARKINSON'S DISEASE (5) Syncopal episodes Code(s): R55 - SYNCOPE AND COLLAPSE Qualifiers: Encounter type: initial encounter Assessment/Plan Assessment/Plan: Orthostatic hypotension, autonomic disfunction. Will check cortisol ECHO Cardiology Start Fludrocortisone 0.1 QD Parkinson disease, symptomatic Re-start Sinemet 25/100 TID Neuro consult Aortic stenosis Assessment/Plan: R/o severe contributing to syncopal episodes ECHO Cardiology consult Functional gait disorder with tremor PT eval The patient might require SNF rehab Muscle weakness Arrhythmia, atrial r/o a.fib vs frequent APC and artifact from Parkinson's on the first EKG Telemetry Reluctant to proceed with A/C if necessary. He is a poor candidate for A/C due to frequent falls and poor compliance with meds. Malnutrition of mild degree Start Ensure TID
--- NOTE | 2018-06-06 12:37 | EKG ---
Test Reason : Blood Pressure : / mmHG Vent. Rate : 068 BPM Atrial Rate : 068 BPM P-R Int : 000 ms QRS Dur : 092 ms QT Int : 396 ms P-R-T Axes : 089 040 051 degrees QTc Int : 421 ms SINUS RHYTHM WITH MARKED SINUS ARRHYTHMIA WITH 1ST DEGREE A-V BLOCK INCREASED R/S RATIO IN V1, CONSIDER EARLY TRANSITION OR POSTERIOR INFARCT ABNORMAL ECG WHEN COMPARED WITH ECG OF 05-JUN-2018 14:55, PREMATURE VENTRICULAR COMPLEXES ARE NO LONGER PRESENT SD INTERVAL HAS DECREASED Confirmed by MD MAGUE, JANET ([id number]) on 06/06/2018 12:36:48 PM Referred By: Joleen IBRAHIM Confirmed By:JANET BOWSER MD
[2018-06-07] MEDS: CARBIDOPA/LEVODOPA 25/100 TABLET (FP) PO SCH ×3 (06:42→22:22)
--- NOTE | 2018-06-07 08:13 | PN ---
Progress Note, Physician History of Present Illness: patient is doing well without any complaints. - Current Medication List Current Medications: Active Medications Aspirin (Asa -) 81 mg PO DAILY [facility] Last Admin: 06/06/18 10:22 Dose: 81 mg Carbidopa/Levodopa (Sinemet 25/100 -) 1 each PO TID [facility] Last Admin: 06/07/18 06:42 Dose: 1 each Finasteride (Proscar -) 5 mg PO DAILY [facility] Last Admin: 06/06/18 10:22 Dose: 5 mg Fludrocortisone Acetate (Florinef -) 0.1 mg PO DAILY [facility] Last Admin: 06/06/18 10:22 Dose: 0.1 mg Metoprolol Succinate (Toprol Xl -) 12.5 mg PO BID [facility] Last Admin: 06/06/18 21:27 Dose: 12.5 mg - Objective Vital Signs: Vital Signs Temperature 97.5 F L 06/07/18 05:41 Pulse Rate 82 06/07/18 05:41 Respiratory Rate 20 06/07/18 05:41 Blood Pressure 107/53 L 06/07/18 05:41 O2 Sat by Pulse Oximetry (%) 94 L 06/06/18 21:00 Constitutional: Yes: Well Nourished, No Distress, Calm Eyes: Yes: WNL, Conjunctiva Clear, EOM Intact HENT: Yes: WNL, Atraumatic, Normocephalic Neck: Yes: Supple, Trachea Midline Cardiovascular: Yes: WNL, Regular Rate and Rhythm Respiratory: Yes: WNL, Regular, CTA Bilaterally Gastrointestinal: Yes: WNL, Normal Bowel Sounds, Soft, Hyperactive Bowel Sounds Breast(s): Yes: WNL Musculoskeletal: Yes: WNL Extremities: Yes: WNL Problem List - Problems (1) Aortic stenosis Code(s): I35.0 - NONRHEUMATIC AORTIC (VALVE) STENOSIS Qualifiers: Cardiac valve disease etiology: nonrheumatic Qualified Code(s): I35.0 - Nonrheumatic aortic (valve) stenosis (2) Arrhythmia, atrial Code(s): I49.8 - OTHER SPECIFIED CARDIAC ARRHYTHMIAS (3) EKG abnormalities Code(s): R94.31 - ABNORMAL ELECTROCARDIOGRAM [ECG] [EKG] (4) Parkinson disease, symptomatic Code(s): G20 - PARKINSON'S DISEASE (5) Syncopal episodes Code(s): R55 - SYNCOPE AND COLLAPSE Qualifiers: Encounter type: initial encounter Assessment/Plan Assessment/Plan: Orthostatic hypotension, autonomic disfunction. Will check cortisol ECHO Cardiology Start Fludrocortisone 0.1 QD Parkinson disease, symptomatic Re-start Sinemet 25/100 TID Neuro consult Aortic stenosis Assessment/Plan: R/o severe contributing to syncopal episodes ECHO Cardiology consult Functional gait disorder with tremor PT eval The patient might require SNF rehab Muscle weakness Arrhythmia, atrial r/o a.fib vs frequent APC and artifact from Parkinson's on the first EKG Telemetry Reluctant to proceed with A/C if necessary. He is a poor candidate for A/C due to frequent falls and poor compliance with meds. Malnutrition of mild degree Start Ensure TID
[2018-06-07] MEDS ORDERED: PT OWN MED DRAWER 7, Y5N ONE (08:51)
[2018-06-07] MEDS: FLUDROCORTISONE ACETATE 0.1 MG TABLET (FP) PO SCH (10:07)
[2018-06-07] MEDS: metoPROLOL SUCCINATE 25 MG TAB.SR.24H (FP) PO SCH ×2 (10:07→22:22)
[2018-06-07] MEDS: FINASTERIDE 5 MG TABLET (FP) PO SCH (10:08)
[2018-06-07] MEDS: ASPIRIN 81 MG CHEWABLE TABLETS PO SCH (10:08)
[2018-06-07 12:32] LABS: ALBUMIN 2.9 g/dl (3.4-5.0); ALK PHOS 86 U/L (45-117); ANION GAP 6 MMOL/L (8-16); BILIRUBIN,TOTAL 0.5 mg/dL (0.2-1); BLOOD UREA NITROGEN 37 mg/dL (7-18); CALCIUM 8.3 mg/dL (8.5-10.1); CHLORIDE 104 mmol/L (98-107); CO2 28 mmol/L (21-32); CREATININE 1.3 mg/dL (0.55-1.3); GLUCOSE,RANDOM 92 mg/dL (74-106); MAGNESIUM 1.9 mg/dL (1.8-2.4); PHOSPHOROUS 3.6 mg/dL (2.5-4.9); POTASSIUM 4.5 mmol/L (3.5-5.1); SGOT/AST 11 U/L (15-37); SGPT/ALT 6 U/L (13-61); SODIUM 139 mmol/L (136-145)
[2018-06-07 14:13] LABS: BASO % 0.5 % (0-2.0); EOS % 2.2 % (0-4.5); HEMATOCRIT 35.5 % (35.4-49); HEMOGLOBIN 11.5 GM/dL (11.7-16.9); LYMPH % 16.8 % (8-40); MCH 30.6 pg (25.7-33.7); MCHC 32.5 g/dl (32.0-35.9); MEAN PLT VOLUME 9.1 fl (7.5-11.1); MONO % 7.3 % (3.8-10.2); NEUT % 73.2 % (42.8-82.8); PLATELET COUNT 211 K/MM3 (134-434); RBC 3.77 M/mm3 (4.00-5.60); RDW 13.8 % (11.9-15.9); WHITE BLOOD COUNT 9.7 K/mm3 (4.0-10.0)
[2018-06-08] MEDS: CARBIDOPA/LEVODOPA 25/100 TABLET (FP) PO SCH ×3 (06:01→21:09)
[2018-06-08 07:23] LABS: ALK PHOS 85 U/L (45-117); ANION GAP 5 MMOL/L (8-16); BILIRUBIN,TOTAL 0.9 mg/dL (0.2-1); BLOOD UREA NITROGEN 36 mg/dL (7-18); CALCIUM 8.4 mg/dL (8.5-10.1); CHLORIDE 103 mmol/L (98-107); CO2 30 mmol/L (21-32); CREATININE 1.3 mg/dL (0.55-1.3); GLUCOSE,RANDOM 93 mg/dL (74-106); MAGNESIUM 2.1 mg/dL (1.8-2.4); PHOSPHOROUS 3.4 mg/dL (2.5-4.9); POTASSIUM 4.6 mmol/L (3.5-5.1); SGOT/AST 9 U/L (15-37); SGPT/ALT 7 U/L (13-61); SODIUM 138 mmol/L (136-145); TOT PROT 6.3 g/dl (6.4-8.2)
--- NOTE | 2018-06-08 07:55 | PN ---
Progress Note, Physician Chief Complaint: C/o generalized weakness. Scheduled for EST Telemetry episodes of VR controlled AFIB Pt preferrs ASA as Afib CVA prophilaxis though it was explained that it is not as effective as NOAC/Wafarin. History of Present Illness: ASHD, previously FCAVD No hx of [place] Parkinson"s Dementia. HTN Multiple falls BPH - Current Medication List Current Medications: Active Medications Aspirin (Asa -) 81 mg PO DAILY [facility] Last Admin: 06/07/18 10:08 Dose: 81 mg Carbidopa/Levodopa (Sinemet 25/100 -) 1 each PO TID [facility] Last Admin: 06/08/18 06:01 Dose: 1 each Finasteride (Proscar -) 5 mg PO DAILY [facility] Last Admin: 06/07/18 10:08 Dose: 5 mg Fludrocortisone Acetate (Florinef -) 0.1 mg PO DAILY [facility] Last Admin: 06/07/18 10:07 Dose: 0.1 mg Metoprolol Succinate (Toprol Xl -) 12.5 mg PO BID [facility] Last Admin: 06/07/18 22:22 Dose: 12.5 mg - Objective Vital Signs: Vital Signs Temperature 98 F 06/08/18 05:58 Pulse Rate 82 06/08/18 05:58 Respiratory Rate 20 06/08/18 05:58 Blood Pressure 108/67 06/08/18 05:58 O2 Sat by Pulse Oximetry (%) 96 06/07/18 21:00 Constitutional: Yes: Anxious, Mild Distress Eyes: Yes: Conjunctiva Clear, EOM Intact HENT: Yes: Atraumatic, Normocephalic, Other. No: Drooling Neck: Yes: Supple Cardiovascular: Yes: Pulse Irregular, S1, S2. No: Bradycardia, Tachycardia Respiratory: Yes: Regular, CTA Bilaterally Gastrointestinal: Yes: Normal Bowel Sounds, Soft. No: Abdomen, Obese ...Rectal Exam: Yes: Deferred Genitourinary: No: Anuria, Bladder Distention Extremities: No: Amputation, Calf Tenderness, Cold, Cyanosis Edema: No Peripheral Pulses WNL: No Integumentary: Yes: WNL Neurological: Yes: Alert, Oriented, Tremors, Unsteady Gait. No: Aphasia, Asterixis, Confusion, Dysarthria, Facial Droop, Lethargy Labs: CBC, BMP 06/08/18 05:30 Problem List - Problems (1) Syncopal episodes Assessment/Plan: Orthostatic hypotension, autonomic disfunction. Will check cortisol ECHO Cardiology Start Fludrocortisone 0.1 QD Code(s): R55 - SYNCOPE AND COLLAPSE Qualifiers: Encounter type: initial encounter (2) Parkinson disease, symptomatic Assessment/Plan: Re-start Sinemet 25/100 TID Neuro consult Code(s): G20 - PARKINSON'S DISEASE (3) Aortic stenosis Assessment/Plan: Moderate to severe by ECHO, no SHAW recorded. Cardiology f/u Code(s): I35.0 - NONRHEUMATIC AORTIC (VALVE) STENOSIS Qualifiers: Cardiac valve disease etiology: nonrheumatic Qualified Code(s): I35.0 - Nonrheumatic aortic (valve) stenosis (4) Functional gait disorder with tremor Assessment/Plan: PT eval The patient might require SNF rehab Muscle weakness Code(s): R26.9 - UNSPECIFIED ABNORMALITIES OF GAIT AND MOBILITY; R25.1 - TREMOR , UNSPECIFIED (5) Arrhythmia, atrial Assessment/Plan: r/o a.fib vs frequent APC and artifact from Parkinson's on the first EKG Telemetry Reluctant to proceed with A/C if necessary. He is a poor candidate for A/C due to frequent falls and poor compliance with meds. Code(s): I49.8 - OTHER SPECIFIED CARDIAC ARRHYTHMIAS (6) Malnutrition of mild degree Assessment/Plan: Start Ensure TID Code(s): E44.1 - MILD PROTEIN-CALORIE MALNUTRITION
[2018-06-08 08:34] LABS: BASO % 0.3 % (0-2.0); EOS % 2.5 % (0-4.5); HEMATOCRIT 33.5 % (35.4-49); HEMOGLOBIN 11.7 GM/dL (11.7-16.9); LYMPH % 21.3 % (8-40); MCH 32.5 pg (25.7-33.7); MEAN CELL VOLUME 92.8 fl (80-96); MEAN PLT VOLUME 9.6 fl (7.5-11.1); MONO % 7.9 % (3.8-10.2); PLATELET COUNT 245 K/MM3 (134-434); RBC 3.61 M/mm3 (4.00-5.60); RDW 14.1 % (11.9-15.9); WHITE BLOOD COUNT 9.4 K/mm3 (4.0-10.0)
[2018-06-08] MEDS ORDERED: REGADENOSON 0.4 MG/5 ML PRE-FILLED SYRINGE IVPUSH ONE ×2 (10:26→10:45)
[2018-06-08] MEDS ORDERED: PT OWN MED DRAWER 7, Y5N ONE (12:02)
[2018-06-08] MEDS: ASPIRIN 81 MG CHEWABLE TABLETS PO SCH (12:14)
[2018-06-08] MEDS: metoPROLOL SUCCINATE 25 MG TAB.SR.24H (FP) PO SCH ×2 (12:14→21:09)
[2018-06-08] MEDS: FLUDROCORTISONE ACETATE 0.1 MG TABLET (FP) PO SCH (12:16)
[2018-06-08] MEDS: FINASTERIDE 5 MG TABLET (FP) PO SCH (12:16)
--- NOTE | 2018-06-08 13:23 | PN ---
Progress Note, Physician History of Present Illness: 87yo M with PMH of HTN, HLD, CAD, ?Parkinsons Disease presenting with syncopal episode and fall. The episode occurred as the patient was walking into the bathroom. Patient describes feeling weak and lightheaded prior to this episode. He lost consciousness, hit his head against an object during this unwitnessed fall. It is unknown how long he was down. No nausea or vomiting. Patient reports that he has had syncopal episodes, about ten this year, most recently in the past couple days, resulting in a right hand abrasion. Unknown what is the cause of his syncopal episodes. He has felt weak for the past several weeks. 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 Patient endorses sixty pound weight loss over the past couple years. He reports he has only eaten one meal per day because that is what comes from [employer]. Patient lives with his 91 year old sister with dementia at home. He receives some help from a neighbor. No fevers, chills, chest pain, or shortness of breath. - Current Medication List Current Medications: Active Medications Aspirin (Asa -) 81 mg PO DAILY [facility] Last Admin: 06/08/18 12:14 Dose: 81 mg Carbidopa/Levodopa (Sinemet 25/100 -) 1 each PO TID [facility] Last Admin: 06/08/18 06:01 Dose: 1 each Finasteride (Proscar -) 5 mg PO DAILY [facility] Last Admin: 06/08/18 12:16 Dose: 5 mg Fludrocortisone Acetate (Florinef -) 0.1 mg PO DAILY [facility] Last Admin: 06/08/18 12:16 Dose: 0.1 mg Metoprolol Succinate (Toprol Xl -) 12.5 mg PO BID [facility] Last Admin: 06/08/18 12:14 Dose: 12.5 mg - Objective Vital Signs: Vital Signs Temperature 98 F 06/08/18 08:00 Pulse Rate 80 06/08/18 08:00 Respiratory Rate 18 06/08/18 08:00 Blood Pressure 122/60 06/08/18 08:00 O2 Sat by Pulse Oximetry (%) 96 06/07/18 21:00 Eyes: Yes: WNL, Conjunctiva Clear, EOM Intact HENT: Yes: WNL, Atraumatic, Normocephalic Neck: Yes: WNL, Supple, Trachea Midline Cardiovascular: Yes: WNL, Regular Rate and Rhythm, Murmur, S1, S2 Respiratory: Yes: WNL, Regular, CTA Bilaterally Gastrointestinal: Yes: WNL, Normal Bowel Sounds Genitourinary: Yes: WNL Musculoskeletal: Yes: WNL Extremities: Yes: WNL Edema: No Integumentary: Yes: WNL Neurological: Yes: WNL, Alert, Oriented ...Motor Strength: WNL Psychiatric: Yes: WNL Labs: CBC, BMP 06/08/18 05:30 06/08/18 05:30 Assessment/Plan 87 year old male admitted with syncopal episode. #Syncope Etiology: unclear Workup: --echocardiogram with moderate to severe with mean gradient of 39mmHg and SHAW 1.2cm2 --consider provocative testing with exercise to assess gradients/SHAW if within goals of care on Friday (patient concerned about his sister with dementia at home and unsure if he would like to proceed with more testing) --ECG 1/ with sinus with PACs --troponin negative --telemetry with sinus rhythm with APCs --nuclear stress test to evaluate for ischemia on Friday (please keep NPO after midnight Friday evening) Treatment: --continue to monitor --Appreciate neuro recs
[2018-06-08] MEDS: BACITRACIN 15 GM TUBE TOPICAL OINTMENT TP SCH (22:28)
[2018-06-09] MEDS: CARBIDOPA/LEVODOPA 25/100 TABLET (FP) PO SCH ×3 (05:40→21:26)
[2018-06-09 06:55] LABS: BASO % 0.3 % (0-2.0); EOS % 3.3 % (0-4.5); HEMATOCRIT 34.1 % (35.4-49); HEMOGLOBIN 11.2 GM/dL (11.7-16.9); LYMPH % 19.1 % (8-40); MCH 30.7 pg (25.7-33.7); MCHC 32.9 g/dl (32.0-35.9); MEAN CELL VOLUME 93.3 fl (80-96); MEAN PLT VOLUME 9.1 fl (7.5-11.1); MONO % 7.3 % (3.8-10.2); PLATELET COUNT 210 K/MM3 (134-434); RBC 3.65 M/mm3 (4.00-5.60); WHITE BLOOD COUNT 8.7 K/mm3 (4.0-10.0)
[2018-06-09 07:23] LABS: ALBUMIN 2.7 g/dl (3.4-5.0); ALK PHOS 83 U/L (45-117); ANION GAP 5 MMOL/L (8-16); BILIRUBIN,TOTAL 0.7 mg/dL (0.2-1); BLOOD UREA NITROGEN 36 mg/dL (7-18); CALCIUM 8.1 mg/dL (8.5-10.1); CHLORIDE 104 mmol/L (98-107); CO2 28 mmol/L (21-32); CREATININE 1.2 mg/dL (0.55-1.3); GLUCOSE,RANDOM 93 mg/dL (74-106); POTASSIUM 4.4 mmol/L (3.5-5.1); SGOT/AST 13 U/L (15-37); SGPT/ALT 8 U/L (13-61); SODIUM 137 mmol/L (136-145); TOT PROT 5.9 g/dl (6.4-8.2)
--- NOTE | 2018-06-09 08:46 | PN ---
Progress Note, Physician Chief Complaint: Pt is A&Ox3; lying in bed; "nervous"; asks about stress test results, but does not want to have further procedures.Denies dizziness or chest pain presently. History of Present Illness: 87yo white man with PMH of HTN, HLD, CAD, ?Parkinsons Disease, aortic stenosis , ?coronary artery anomaly noted on coronary angiogram "many years ago" (had been seeing Dr. Wetzel),now presenting with syncopal episode and fall. The episode occurred as the patient was walking into the bathroom. Patient describes feeling weak and lightheaded prior to this episode. He lost consciousness, hit his head against an object during this unwitnessed fall. It is unknown how long he was down. No nausea or vomiting. Patient reports that he has had syncopal episodes, about ten this year, most recently in the past couple days, resulting in a right hand abrasion. Unknown what is the cause of his syncopal episodes. He has felt weak for the past several weeks. 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 Patient endorses sixty pound weight loss over the past couple years. He reports he has only eaten one meal per day because that is what comes from [employer] Whe[employer]. Patient lives with his 91 year old sister with dementia at home. He receives some help from a neighbor. No fevers, chills, chest pain, or shortness of breath. - Current Medication List Current Medications: Active Medications Aspirin (Asa -) 81 mg PO DAILY [facility] Last Admin: 06/08/18 12:14 Dose: 81 mg Bacitracin (Bacitracin -) 1 applic TP DAILY [facility] Last Admin: 06/08/18 22:28 Dose: 1 applic Carbidopa/Levodopa (Sinemet 25/100 -) 1 each PO TID [facility] Last Admin: 06/09/18 05:40 Dose: 1 each Finasteride (Proscar -) 5 mg PO DAILY [facility] Last Admin: 06/08/18 12:16 Dose: 5 mg Fludrocortisone Acetate (Florinef -) 0.1 mg PO DAILY [facility] Last Admin: 06/08/18 12:16 Dose: 0.1 mg Metoprolol Succinate (Toprol Xl -) 12.5 mg PO BID [facility] Last Admin: 06/08/18 21:09 Dose: 12.5 mg - Objective Vital Signs: Vital Signs Temperature 98 F 06/09/18 05:26 Pulse Rate 76 06/09/18 05:26 Respiratory Rate 20 06/09/18 05:26 Blood Pressure 113/67 06/09/18 05:26 O2 Sat by Pulse Oximetry (%) 100 06/08/18 20:49 Constitutional: Yes: Anxious, Mild Distress Eyes: Yes: WNL HENT: Yes: WNL Neck: Yes: WNL Cardiovascular: Yes: Pulse Irregular, Murmur (4/6 LYSSA, RSB-->left axilla), S1, S2 Respiratory: Yes: WNL Gastrointestinal: Yes: Soft ...Rectal Exam: Yes: Deferred Genitourinary: No: Anuria Breast(s): Yes: WNL Musculoskeletal: Yes: Muscle Weakness Extremities: Yes: Cool Edema: No Peripheral Pulses WNL: Yes Integumentary: Yes: WNL Neurological: Yes: Alert, Oriented, Weakness Psychiatric: Yes: Other (anxiety) Labs: CBC, BMP 06/09/18 05:30 06/09/18 05:30 Abnormal Lab Results 06/09/18 06/09/18 05:30 05:30 RBC 3.65 L Hgb 11.2 L Hct 34.1 L Anion Gap 5 L BUN 36 H Calcium 8.1 L AST 13 L ALT 8 L Total Protein 5.9 L Albumin 2.7 L - ....Imaging Ultrasound: Report Reviewed (ECHO: normal LVEF; moderately severe ) Other: Image Reviewed (telemetry: NSR; sinus arrhythmia Stress MIBI: + ischemia) Problem List - Problems (1) Parkinson disease, symptomatic Code(s): G20 - PARKINSON'S DISEASE (2) Syncopal episodes Assessment/Plan: Maintain hydration; encourage in crease in PO intake (lost over 50 lbs in past year or so; pt says his appetite decreased, and he was eating only one Meals on Wheels daily; his appetite has imporved in hospital. Orthostatic vital signs: marked reduction in BP on standing (06/05/2018): repeat today. ECHO: normal LVEF and LV size; moderately severe . Telemetry monitoring: NSR with marked sinus arrhythmia. Neruology w/u in progress. Code(s): R55 - SYNCOPE AND COLLAPSE Qualifiers: Encounter type: initial encounter (3) Aortic stenosis Assessment/Plan: Moderately severe aortic stenosis () with normal LVEF and LV size. Stress Lexiscan MIBI: small area of mildlly intense inferoapical ischemia. Pt is reluctant to pursue further studies to ascertain possible relation of to his syncopal episode (e.g. check of gradient change with exertion); he is also reluctant to consider TAVR. On metoprolol ER. Code(s): I35.0 - NONRHEUMATIC AORTIC (VALVE) STENOSIS Qualifiers: Cardiac valve disease etiology: nonrheumatic Qualified Code(s): I35.0 - Nonrheumatic aortic (valve) stenosis (4) EKG abnormalities Assessment/Plan: NSR with marked sinus arrhythmia. Code(s): R94.31 - ABNORMAL ELECTROCARDIOGRAM [ECG] [EKG]
[2018-06-09] MEDS: FINASTERIDE 5 MG TABLET (FP) PO SCH (10:33)
[2018-06-09] MEDS: FLUDROCORTISONE ACETATE 0.1 MG TABLET (FP) PO SCH (10:34)
[2018-06-09] MEDS: ASPIRIN 81 MG CHEWABLE TABLETS PO SCH (10:34)
[2018-06-09] MEDS: BACITRACIN 15 GM TUBE TOPICAL OINTMENT TP SCH (10:34)
[2018-06-09] MEDS: metoPROLOL SUCCINATE 25 MG TAB.SR.24H (FP) PO SCH ×2 (10:34→21:26)
--- NOTE | 2018-06-09 13:32 | PN ---
Progress Note, Physician Chief Complaint: Still orthostatic changes noted EST, Echo discussed with cardiology Family-nephew and niece ask about adult assisted living.-discussed at length History of Present Illness: ASHD, previously FCAVD No hx of [place] Parkinson"s Dementia. HTN Multiple falls BPH - Current Medication List Current Medications: Active Medications Aspirin (Asa -) 81 mg PO DAILY [facility] Last Admin: 06/09/18 10:34 Dose: 81 mg Bacitracin (Bacitracin -) 1 applic TP DAILY [facility] Last Admin: 06/09/18 10:34 Dose: 1 applic Carbidopa/Levodopa (Sinemet 25/100 -) 1 each PO TID [facility] Last Admin: 06/09/18 05:40 Dose: 1 each Finasteride (Proscar -) 5 mg PO DAILY [facility] Last Admin: 06/09/18 10:33 Dose: 5 mg Fludrocortisone Acetate (Florinef -) 0.1 mg PO DAILY [facility] Last Admin: 06/09/18 10:34 Dose: 0.1 mg Metoprolol Succinate (Toprol Xl -) 12.5 mg PO BID [facility] Last Admin: 06/09/18 10:34 Dose: Not Given - Objective Vital Signs: Vital Signs Temperature 98.4 F 06/09/18 09:00 Pulse Rate 81 06/09/18 09:31 Respiratory Rate 18 06/09/18 09:00 Blood Pressure 105/64 06/09/18 09:31 O2 Sat by Pulse Oximetry (%) 100 06/09/18 09:00 Constitutional: Yes: Anxious, Mild Distress Eyes: Yes: Conjunctiva Clear, EOM Intact HENT: Yes: Atraumatic, Normocephalic Neck: Yes: Supple, Trachea Midline Cardiovascular: Yes: Regular Rate and Rhythm, Murmur, S1, S2 Respiratory: Yes: Regular, CTA Bilaterally Gastrointestinal: Yes: Normal Bowel Sounds, Soft. No: Abdomen, Obese ...Rectal Exam: Yes: Deferred Genitourinary: No: Anuria Breast(s): Yes: WNL Extremities: No: Calf Tenderness, Cyanosis Edema: No Integumentary: Yes: WNL Neurological: Yes: Tremors. No: WNL ...Motor Strength: WNL Psychiatric: Yes: Alert, Oriented. No: Agitated, Suicidal Ideation Labs: CBC, BMP 06/09/18 05:30 06/09/18 05:30 Problem List - Problems (1) Syncopal episodes Assessment/Plan: Orthostatic hypotension, autonomic disfunction. Will check cortisol ECHO Cardiology Start Fludrocortisone 0.1 QD Code(s): R55 - SYNCOPE AND COLLAPSE Qualifiers: Encounter type: initial encounter (2) Parkinson disease, symptomatic Assessment/Plan: Re-start Sinemet 25/100 TID Neuro consult Code(s): G20 - PARKINSON'S DISEASE (3) Aortic stenosis Assessment/Plan: Moderate to severe by ECHO, further f/u by cardiology discussed Code(s): I35.0 - NONRHEUMATIC AORTIC (VALVE) STENOSIS Qualifiers: Cardiac valve disease etiology: nonrheumatic Qualified Code(s): I35.0 - Nonrheumatic aortic (valve) stenosis (4) Functional gait disorder with tremor Assessment/Plan: PT eval The patient might require SNF rehab Muscle weakness Code(s): R26.9 - UNSPECIFIED ABNORMALITIES OF GAIT AND MOBILITY; R25.1 - TREMOR , UNSPECIFIED (5) Arrhythmia, atrial Assessment/Plan: r/o a.fib vs frequent APC and artifact from Parkinson's on the first EKG Telemetry Reluctant to proceed with A/C if necessary. He is a poor candidate for A/C due to frequent falls and poor compliance with meds. Code(s): I49.8 - OTHER SPECIFIED CARDIAC ARRHYTHMIAS (6) Malnutrition of mild degree Assessment/Plan: Start Ensure TID Code(s): E44.1 - MILD PROTEIN-CALORIE MALNUTRITION
--- NOTE | 2018-06-09 14:32 | EKG ---
Test Reason : Blood Pressure : / mmHG Vent. Rate : 074 BPM Atrial Rate : 074 BPM P-R Int : 194 ms QRS Dur : 088 ms QT Int : 372 ms P-R-T Axes : 030 030 044 degrees QTc Int : 412 ms SINUS RHYTHM WITH MARKED SINUS ARRHYTHMIA WITH OCCASIONAL PREMATURE VENTRICULAR COMPLEXES OTHERWISE NORMAL ECG Confirmed by Yordan Garner MD ([id number]) on 06/09/2018 2:31:38 PM Referred By: Joleen IBRAHIM Confirmed By:Yordan Garner MD
[2018-06-10] MEDS: CARBIDOPA/LEVODOPA 25/100 TABLET (FP) PO SCH (05:11)
--- NOTE | 2018-06-10 07:36 | PN ---
Progress Note, Physician Chief Complaint: c/o generalized weakness, anxious. History of Present Illness: ASHD, previously FCAVD No hx of [place] Parkinson"s Dementia. HTN Multiple falls BPH - Current Medication List Current Medications: Active Medications Aspirin (Asa -) 81 mg PO DAILY [facility] Last Admin: 06/09/18 10:34 Dose: 81 mg Bacitracin (Bacitracin -) 1 applic TP DAILY [facility] Last Admin: 06/09/18 10:34 Dose: 1 applic Carbidopa/Levodopa (Sinemet 25/100 -) 1 each PO TID [facility] Last Admin: 06/10/18 05:11 Dose: 1 each Finasteride (Proscar -) 5 mg PO DAILY [facility] Last Admin: 06/09/18 10:33 Dose: 5 mg Fludrocortisone Acetate (Florinef -) 0.1 mg PO DAILY [facility] Last Admin: 06/09/18 10:34 Dose: 0.1 mg Metoprolol Succinate (Toprol Xl -) 12.5 mg PO BID [facility] Last Admin: 06/09/18 21:26 Dose: 12.5 mg - Objective Vital Signs: Vital Signs Temperature 98.1 F 06/10/18 06:00 Pulse Rate 81 06/10/18 06:00 Respiratory Rate 20 06/10/18 06:00 Blood Pressure 110/71 06/10/18 06:00 O2 Sat by Pulse Oximetry (%) 98 06/09/18 21:00 Constitutional: Yes: No Distress, Anxious Eyes: Yes: Conjunctiva Clear, EOM Intact HENT: Yes: Atraumatic, Normocephalic. No: Drooling Neck: Yes: Supple, Trachea Midline. No: Decreased ROM, Lymphadenopathy Cardiovascular: Yes: Pulse Irregular (Frequent APC), Murmur (On aorta LYSSA), S1, S2. No: JVD Respiratory: Yes: Regular, CTA Bilaterally, SOB on Exertion. No: SOB Gastrointestinal: Yes: Normal Bowel Sounds, Soft. No: Abdomen, Obese, Ascites, Palpable Mass ...Rectal Exam: Yes: Deferred Genitourinary: No: Anuria, Bladder Distention, CVA Tenderness - Left, CVA Tenderness - Right, Oliguria Breast(s): Yes: WNL Musculoskeletal: Yes: Muscle Weakness Extremities: No: Amputation, Calf Tenderness, Cold, Cyanosis Edema: No Peripheral Pulses WNL: No Integumentary: Yes: WNL Neurological: Yes: Tremors ...Motor Strength: WNL Psychiatric: Yes: WNL Labs: CBC, BMP 06/09/18 05:30 06/09/18 05:30 Problem List - Problems (1) Syncopal episodes Assessment/Plan: Orthostatic hypotension, autonomic disfunction. Will check cortisol ECHO noted Cardiology discussed Continue Fludrocortisone 0.1 QD Code(s): R55 - SYNCOPE AND COLLAPSE Qualifiers: Encounter type: initial encounter (2) Parkinson disease, symptomatic Assessment/Plan: Re-start Sinemet 25/100 TID Neuro consult Code(s): G20 - PARKINSON'S DISEASE (3) Aortic stenosis Assessment/Plan: Moderate to severe by ECHO, further f/u by cardiology discussed as outpatient patient will think about TAVR if necessary Code(s): I35.0 - NONRHEUMATIC AORTIC (VALVE) STENOSIS Qualifiers: Cardiac valve disease etiology: nonrheumatic Qualified Code(s): I35.0 - Nonrheumatic aortic (valve) stenosis (4) Functional gait disorder with tremor Code(s): R26.9 - UNSPECIFIED ABNORMALITIES OF GAIT AND MOBILITY; R25.1 - TREMOR , UNSPECIFIED (5) Arrhythmia, atrial Code(s): I49.8 - OTHER SPECIFIED CARDIAC ARRHYTHMIAS (6) Malnutrition of mild degree Code(s): E44.1 - MILD PROTEIN-CALORIE MALNUTRITION
--- NOTE | 2018-06-10 07:39 | DS ---
Physical Examination Vital Signs: Vital Signs Temperature 98.1 F 06/10/18 06:00 Pulse Rate 81 06/10/18 06:00 Respiratory Rate 20 06/10/18 06:00 Blood Pressure 110/71 06/10/18 06:00 O2 Sat by Pulse Oximetry (%) 98 06/09/18 21:00 Constitutional: Yes: No Distress, Anxious Eyes: Yes: Conjunctiva Clear, EOM Intact HENT: Yes: Atraumatic, Normocephalic Neck: Yes: Supple, Trachea Midline. No: Decreased ROM, Lymphadenopathy Cardiovascular: Yes: Pulse Irregular (APC), Murmur (LYSSA on aorta of ) Respiratory: Yes: Regular, CTA Bilaterally Gastrointestinal: Yes: Normal Bowel Sounds, Soft. No: Abdomen, Obese ...Rectal Exam: Yes: Deferred Renal/: No: Anuria, Bladder Distention, CVA Tenderness - Left, CVA Tenderness - Right Breast(s): Yes: WNL Musculoskeletal: Yes: WNL Extremities: No: Calf Tenderness, Cold, Cyanosis Edema: No Integumentary: Yes: WNL Neurological: Yes: Alert, Oriented, Cran Nerves II-XII Intact, Tremors (C/w Parkinson's disease), Unsteady Gait, Weakness. No: Aphasia, Ataxia, Confusion, Dysarthria, Facial Droop, Lethargy, Loss of Sensation, Paresthesia, Pre- Existing Deficit, Seizure, Unresponsive ...Motor Strength: WNL Psychiatric: Yes: WNL Labs: CBC, BMP 06/09/18 05:30 06/09/18 05:30 Discharge Summary Reason For Visit: SYNCOPE,RECURRENT FALLS Current Active Problems Aortic stenosis (Acute) Arrhythmia, atrial (Acute) EKG abnormalities (Acute) Parkinson disease, symptomatic (Acute) Syncopal episodes (Acute) Condition: Stable - Instructions Diet, Activity, Other Instructions: You came into the idea after syncope (fainting). We spoke with Dr. Lewis who recommends outpatient follow-up with a appeals specialist. You need to get an Ultrasound/ Echocardiogram and further evaluation of your heart. We have referred you to Dr. Cuevas. Call and make an appointment at the number provided. Your workup is not complete until you do so. We also found that your blood pressure gets very low when you sit or stand up from a laying position. Please review the handout about orthostatic hypotension. Eat and hydrate throughout the day to prevent dehydration and low blood sugar levels. Immediate medical attention is required if you have: any chest pain, palpitations, shortness of breath, severe headaches, changes in vision, focal numbness or weakness, any severe abdominal pain, any black tarry stool, or any new or concerning symptoms. If you think you are having an emergency, call for emergency medical services or present to the emergency department right away. Referrals: Nirav Cuevas MD [Staff Physician] - Kayode Lewis MD [Primary Care Provider] - Disposition: [facility]ILITY - Home Medications Comprehensive Discharge Medication List: Ambulatory Orders Aspirin [ASA] 81 mg PO DAILY 11/23/11 Finasteride 5 mg PO DAILY 11/23/11 Metoprolol Succinate [Toprol XL] 12.5 mg PO BID 11/23/11
[2018-06-10] MEDS ORDERED: PT OWN MED DRAWER 7, Y5N ONE (09:46)
[2018-06-10] MEDS: metoPROLOL SUCCINATE 25 MG TAB.SR.24H (FP) PO SCH (09:48)
[2018-06-10] MEDS: ASPIRIN 81 MG CHEWABLE TABLETS PO SCH (09:48)
[2018-06-10] MEDS: BACITRACIN 15 GM TUBE TOPICAL OINTMENT TP SCH (09:48)
[2018-06-10] MEDS: FLUDROCORTISONE ACETATE 0.1 MG TABLET (FP) PO SCH (09:49)
[2018-06-10] MEDS: FINASTERIDE 5 MG TABLET (FP) PO SCH (09:49)
--- NOTE | 2018-06-10 11:09 | PN ---
Progress Note, Physician History of Present Illness: 87yo M with PMH of HTN, HLD, CAD, ?Parkinsons Disease presenting with syncopal episode and fall. The episode occurred as the patient was walking into the bathroom. Patient describes feeling weak and lightheaded prior to this episode. He lost consciousness, hit his head against an object during this unwitnessed fall. It is unknown how long he was down. No nausea or vomiting. Patient reports that he has had syncopal episodes, about ten this year, most recently in the past couple days, resulting in a right hand abrasion. Unknown what is the cause of his syncopal episodes. He has felt weak for the past several weeks. 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 Patient endorses sixty pound weight loss over the past couple years. He reports he has only eaten one meal per day because that is what comes from [employer]als on Wheels. Patient lives with his 91 year old sister with dementia at home. He receives some help from a neighbor. No fevers, chills, chest pain, or shortness of breath. - Current Medication List Current Medications: Active Medications Aspirin (Asa -) 81 mg PO DAILY [facility] Last Admin: 06/10/18 09:48 Dose: 81 mg Bacitracin (Bacitracin -) 1 applic TP DAILY [facility] Last Admin: 06/10/18 09:48 Dose: 1 applic Carbidopa/Levodopa (Sinemet 25/100 -) 1 each PO TID [facility] Last Admin: 06/10/18 05:11 Dose: 1 each Finasteride (Proscar -) 5 mg PO DAILY [facility] Last Admin: 06/10/18 09:49 Dose: 5 mg Fludrocortisone Acetate (Florinef -) 0.1 mg PO DAILY [facility] Last Admin: 06/10/18 09:49 Dose: 0.1 mg Metoprolol Succinate (Toprol Xl -) 12.5 mg PO BID [facility] Last Admin: 06/10/18 09:48 Dose: 12.5 mg - Objective Vital Signs: Vital Signs Temperature 98.1 F 06/10/18 06:00 Pulse Rate 81 06/10/18 06:00 Respiratory Rate 20 06/10/18 06:00 Blood Pressure 110/71 06/10/18 06:00 O2 Sat by Pulse Oximetry (%) 98 06/09/18 21:00 Eyes: Yes: WNL, Conjunctiva Clear, EOM Intact HENT: Yes: WNL, Atraumatic, Normocephalic Neck: Yes: WNL, Supple, Trachea Midline Cardiovascular: Yes: WNL, Regular Rate and Rhythm Respiratory: Yes: WNL, Regular, CTA Bilaterally Gastrointestinal: Yes: WNL, Normal Bowel Sounds Genitourinary: Yes: WNL Musculoskeletal: Yes: WNL Extremities: Yes: WNL Edema: No Integumentary: Yes: WNL Neurological: Yes: WNL, Alert, Oriented ...Motor Strength: WNL Psychiatric: Yes: WNL Labs: CBC, BMP 06/09/18 05:30 06/09/18 05:30 Assessment/Plan 87 year old male admitted with syncopal episode. #Syncope Etiology: unclear Workup: --echocardiogram with moderate to severe with mean gradient of 39mmHg and SHAW 1.2cm2 --consider provocative testing with exercise to assess gradients/SHAW if within goals of care on Friday (patient concerned about his sister with dementia at home and unsure if he would like to proceed with more testing) --ECG 06/05 with sinus with PACs --troponin negative --telemetry with sinus rhythm with APCs --nuclear stress test to evaluate for ischemia on Friday (please keep NPO after midnight Friday evening) Treatment: --continue to monitor --Appreciate neuro recs
[2018-06-10 13:56] VITALS: BP 110/69; PULSE 89; TEMP 97.8
== END 2018-06-10 11:43 | DRG 57 ==
LOC: JER 08:44 → JERBED 15:46 → J5S 20:03 → J4W 06-05 18:48
PROVIDERS: ADMIT Internal Medicine; ATTEND Internal Medicine
DX: G20 Parkinson's disease (principal); E44.1 Mild protein-calorie malnutrition; I95.1 Orthostatic hypotension; I25.10 Atherosclerotic heart disease of native coronary artery without angina pectoris; I10 Essential (primary) hypertension; E78.5 Hyperlipidemia, unspecified; N40.0 Benign prostatic hyperplasia without lower urinary tract symptoms; F02.80 Dementia in other diseases classified elsewhere, unspecified severity, without behavioral disturbance, psychotic disturbance, mood disturbance, and anxiety; K57.90 Diverticulosis of intestine, part unspecified, without perforation or abscess without bleeding; F41.8 Other specified anxiety disorders; M54.5 Low back pain; M19.90 Unspecified osteoarthritis, unspecified site; R55 Syncope and collapse; I35.0 Nonrheumatic aortic (valve) stenosis; R26.9 Unspecified abnormalities of gait and mobility; R26.81 Unsteadiness on feet; R25.1 Tremor, unspecified; F45.8 Other somatoform disorders; I49.8 Other specified cardiac arrhythmias; Z68.24 Body mass index [BMI] 24.0-24.9, adult; R94.31 Abnormal electrocardiogram [ECG] [EKG]; Z91.81 History of falling
CPT/HCPCS: 36415; 70450-TC; 71045-TC-FY; 72125-TC; 78452-TC; 80053; 80061; 81003; 81015; 82533; 82550; 82607; 82962; 83036; 83721; 83735; 84100; 84439; 84443; 84484; 85025; 87086; 90688; 93005; 93010; 93017; 93306-TC; 97116-GP; 97161-GP; 99283-25; A9502; G0008; J2785